=== PATIENT | female | born 1985 | race Caucasian/White ===

== ENCOUNTER → 2016-05-03 | Outpatient (CLI) | payer OTHER ==
[~2016-05-03] MED LIST: ACET50TA PO; AMOXICILLIN 875 MG PO; IBUP200T2 PO; SIME40TA PO; [UNRECOGNIZED DRUG - OTHER] PO
[2016-05-03 14:00] LABS: HBsAg Prenatal NEGATIVE (NEGATIVE)
[2016-05-03 14:12] LABS: BASO % 0.1 % (0.0-1.0); EOS # 0.1 K/mm3 (0.0-0.50); EOS % 1.3 % (0.0-3.0); LARGE UNSTAINED CELL # 0.1 K/mm3 (0.0-0.4); LARGE UNSTAINED CELL % 0.9 % (0.0-4.0); LYMPH # 1.5 K/mm3 (1.5-4.5); LYMPH % 13.9 % (24.0-44.0); MEAN CORPUSCULAR HEMOGLOBIN 32.3 pg (27.0-33.0); MEAN CORPUSCULAR VOLUME 95.1 fl (80.0-96.0); MONO # 0.5 K/mm3 (0.0-0.8); MONO % 5.4 % (0.0-5.0); NEUTROPHILS # 7.9 K/mm3 (1.8-7.7); NEUTROPHILS % 78.4 % (36.0-66.0); PLATELET COUNT, AUTOMATED 223 k/mm3 (150-450); RED CELL DISTRIBUTION WIDTH 13.5 % (11.5-14.5)
[2016-05-04 14:13] LABS: HIV SCRN NEGATIVE (NEGATIVE); HIV SCRN1 NEGATIVE (NEGATIVE)
[2016-05-04 14:14] LABS: CONTROL LINE INT CTR LINE PRESENT
== END ==
LOC: M SMT 10:54
PROVIDERS: ATTEND Obstetrics & Gynecology
DX: Z34.81 Encounter for supervision of other normal pregnancy, first trimester (principal)

== ENCOUNTER → 2016-05-04 | Outpatient (CLI) | payer OTHER ==
--- NOTE | 2016-05-05 06:58 | REP ---
Clinical: Dating and viability. Technique: Transabdominal first trimester obstetrical ultrasound. Findings: Ultrasound examination demonstrates a single live early intrauterine . Gestational age by current biometrical measurements at 14 weeks 5 days with estimated date of delivery 10/28/2016. heart rate equals 157 beats per minute. No gross abnormalities are identified. Placenta is noted anteriorly and grade zero. Impression: Single live early intrauterine at 14 weeks 5 days gestational age. Complete anatomical assessment should be performed at 19-20 weeks. Signed by Dirk Webster MD 05/05/2016 06:49 A
== END ==
LOC: M RAD 11:59
PROVIDERS: ATTEND Advanced Practice Midwife
DX: Z34.82 Encounter for supervision of other normal pregnancy, second trimester (principal)

== ENCOUNTER → 2016-06-02 | Outpatient (CLI) | payer OTHER ==
--- NOTE | 2016-06-02 16:32 | REP ---
OB ULTRASOUND: Real-time sonographic evaluation of the gravid uterus is performed. There is a single living intrauterine gestation. Estimated gestational age is 18 weeks 6 days with EDC 11/07/2016. Today's measurements indicate appropriate growth. BPD 41 mm = 18 weeks 4 days, 41st percentile. HC 151 mm = 18 weeks 1 days, 30th percentile. AC 135 mm = 18 weeks 6 day, 52nd percentile. Femur length 28 mm = 18 weeks 4 days, 44th percentile. HC/AC ratio 1.12 within normal range. Estimated weight 254 grams, 41st percentile. Cervix is closed and measures 4.9 cm in length. heart rate 150 beats per minute. SEEN/GROSSLY UNREMARKABLE Lateral ventricles Yes Posterior fossa Yes Upper lip Yes Four-chamber heart No LVOT No RVOT No Stomach Yes Cord insertion Yes Three vessel cord No Kidneys Yes Bladder No Spine Yes position: Breech. Placenta: Anterior and grade 0 with no previa or abruption. Amniotic fluid: Within normal limits. Signed by Kamlesh Bueno MD 06/03/2016 12:56 P
== END ==
LOC: M SMT 14:59
PROVIDERS: ATTEND Advanced Practice Midwife
DX: O09.42 Supervision of pregnancy with grand multiparity, second trimester (principal); R53.83 Other fatigue

== ENCOUNTER → 2016-07-05 | Outpatient (CLI) | payer OTHER ==
--- NOTE | 2016-07-05 15:48 | REP ---
Clinical: Anatomical evaluation. Comparison: 06/02/2016 . Findings: Examination demonstrates a single live intrauterine in cephalic presentation. motion is identified by technologist. Placenta is noted anteriorly and grade zero without evidence for placenta previa or abruption. Amniotic fluid volume is normal. Cervix measures 3.7 cm in length and appears closed. No evidence for nuchal cord. Gestational age by LMP 23 weeks 4 days with ESME 10/28/2016 . Gestational age by current measurements 22 weeks 5 days with ESME 11/03/2016 . FHR equals 157 beats per minute. Estimated weight 594 grams ( 40th percentile). Anatomical assessment demonstrates normal structures including cranium, choroid plexus, cavum, cerebellum/posterior fossa, lungs, four-chamber heart/ventricular outflow tracts, diaphragm, stomach, cord insertion/three-vessel cord, kidneys/bladder, spine, and extremities. Impression: 1. Single live intrauterine in cephalic presentation demonstrating appropriate interval growth. 2. In conjunction with prior examination anatomical assessment is complete and normal. Signed by Dirk Webster MD 07/05/2016 03:39 P
== END ==
LOC: M SMT 14:08
PROVIDERS: ATTEND Specialist
DX: Z34.82 Encounter for supervision of other normal pregnancy, second trimester (principal)

== ENCOUNTER → 2016-09-21 | Outpatient (CLI) | payer OTHER ==
[~2016-09-21] MED LIST changes: +IBUP-1114 PO; +PRE-TAB3 PO
[2016-09-21 09:35] LABS: MEAN CORPUSCULAR HEMOGLOBIN 32.5 pg (27.0-33.0); MEAN CORPUSCULAR HGB CONC 34.2 g/dl (32.0-36.5); MEAN CORPUSCULAR VOLUME 95.1 fl (80.0-96.0); RED CELL DISTRIBUTION WIDTH 13.5 % (11.5-14.5); WHITE BLOOD COUNT 8.7 K/mm3 (4.0-10.0)
[2016-09-21 09:44] LABS: ALT/SGPT 13 U/L (12-78); AST/SGOT 11 U/L (15-37); BILIRUBIN,TOTAL 0.3 MG/DL (0.2-1.0); CREATININE FOR GFR 0.58 MG/DL (0.55-1.02); GLOMERULAR FILTRATION RATE > 60.0 (>60); URIC ACID 3.8 MG/DL (2.6-6.0)
== END ==
LOC: M LAB 07:58
PROVIDERS: ATTEND Advanced Practice Midwife
DX: O13.3 Gestational [pregnancy-induced] hypertension without significant proteinuria, third trimester (principal); Z3A.00 Weeks of gestation of pregnancy not specified

== ENCOUNTER → 2016-09-21 | Outpatient (CLI) | payer OTHER ==
[2016-09-21 09:34] LABS: MEAN CORPUSCULAR HEMOGLOBIN 31.9 pg (27.0-33.0); MEAN CORPUSCULAR HGB CONC 33.6 g/dl (32.0-36.5); MEAN CORPUSCULAR VOLUME 94.9 fl (80.0-96.0); RED CELL DISTRIBUTION WIDTH 13.5 % (11.5-14.5); WHITE BLOOD COUNT 8.8 K/mm3 (4.0-10.0)
== END ==
LOC: M LAB 08:01
PROVIDERS: ATTEND Obstetrics & Gynecology
DX: Z34.82 Encounter for supervision of other normal pregnancy, second trimester (principal)

== ENCOUNTER → 2016-09-27 | Outpatient (REF) | payer OTHER ==
[2016-09-27 16:12] LABS: CREATININE, SERUM 0.5 MG/DL (0.6-1.0)
[2016-09-27 16:19] LABS: CREATININE CLEARANCE, URINE 180.2 ML/MIN (75-115)
== END ==
LOC: M LAB REF 14:53
PROVIDERS: ATTEND Obstetrics & Gynecology
DX: O13.3 Gestational [pregnancy-induced] hypertension without significant proteinuria, third trimester (principal)

== ENCOUNTER → 2016-10-15 | Outpatient (REF) | payer OTHER | LOC: M LAB REF 11:07 | PROVIDERS: ATTEND Advanced Practice Midwife | DX: O09.43 Supervision of pregnancy with grand multiparity, third trimester (principal); Z3A.00 Weeks of gestation of pregnancy not specified ==

== ENCOUNTER 2016-10-28 06:57 | Inpatient (IN) | payer OTHER ==
[~2016-10-28] VITALS: Ht 162.6 cm; Wt 85.0 kg
[2016-10-28] VITALS (30 sets, daily range): BP systolic 108–147; BP diastolic 57–96
[~2016-10-28 06:57] MED LIST changes: -IBUP-1114 PO; -PRE-TAB3 PO
[2016-10-28] MEDS ORDERED: PRE-TAB3 PO (07:00)
[2016-10-28] MEDS ORDERED: PENICILLIN G POTASSIUM IV 5 MU in D5W MINI-BAG PLUS 100 ML IV STA (08:07)
[2016-10-28] MEDS ORDERED: LACTATED RINGER'S 1000 ML IV STA (08:07)
[2016-10-28] MEDS: LR 1,000 ML IV SCH ×2 (08:58→20:00)
[2016-10-28 09:30] LABS: MEAN CORPUSCULAR HEMOGLOBIN 31.8 pg (27.0-33.0); MEAN CORPUSCULAR HGB CONC 33.8 g/dl (32.0-36.5); RED CELL DISTRIBUTION WIDTH 14.1 % (11.5-14.5); WHITE BLOOD COUNT 9.8 K/mm3 (4.0-10.0)
[2016-10-28] MEDS ORDERED: miSOPROStol 50 MCG 1/2 TAB (S0191) SL PRN (13:15)
[2016-10-28] MEDS: PENICILLIN G POTASSIUM IV 2.5 MU in D5W 100 ML IV SCH ×3 (13:16→22:00)
[2016-10-28] MEDS ORDERED: OXYTOCIN DRIP 30 UNITS in APPROPRIATE DILUENT 1 EA IV SCH ×5 (18:15→22:49)
[2016-10-28] MEDS ORDERED: FENTANYL 2MCG/ML ROPIVACAINE 0.2% IN 0.9% NACL 200ML IVBAG As Ordered ONE (20:35)
[2016-10-28] MEDS ORDERED: NALOXONE INJ 0.4 MG/1 ML VIAL (J2310) IV PRN (22:15)
[2016-10-28] MEDS ORDERED: FENTANYL/ROPIVACAINE/NACL BAG 200 ML EPIDURAL SCH (22:15)
[2016-10-28] MEDS ORDERED: diphenhydrAMINE INJ 50MG/ML VIAL (J1200) IV PRN (22:15)
[2016-10-28] MEDS ORDERED: LACTATED RINGER'S 1000 ML IV PRN (22:15)
[2016-10-28] MEDS ORDERED: REFRIGERATOR IV KEYS XX PRN (22:15)
[2016-10-28] MEDS ORDERED: ePHEDrine SULFATE 25 MG/5 ML(5MG/ML) SYRINGE IV PRN (22:15)
[2016-10-28] MEDS ORDERED: EPIDURAL/PCA KEYS XX PRN (22:15)
[2016-10-28] MEDS ORDERED: ONDANSETRON 4MG/2ML VIAL (J2405) IV PRN ×2 (22:15→23:00)
[2016-10-28] MEDS ORDERED: EPIDURAL COMMENT XX SCH (22:15)
[2016-10-28] MEDS ORDERED: LR 1,000 ML IV SCH (22:49)
[2016-10-28] MEDS ORDERED: DIBUCAINE 1% OINTMENT 30GM TOP PRN (23:00)
[2016-10-28] MEDS ORDERED: MEASLES,MUMPS,RUBELLA VACCINE INJ (MMR-II) (90707) SC SCH (23:00)
[2016-10-28] MEDS ORDERED: ACETAMINOPHEN 500 MG TAB PO PRN (23:00)
[2016-10-28] MEDS ORDERED: IBUPROFEN 800 MG TAB PO PRN (23:00)
[2016-10-28] MEDS ORDERED: RHOGAM 300 MCG (1500 IU) INJ (J2790) IM SCH (23:00)
[2016-10-28] MEDS ORDERED: PROMETHAZINE 25 MG TAB PO PRN (23:00)
[2016-10-28] MEDS ORDERED: DOCUSATE SODIUM 100 MG CAP PO PRN (23:00)
[2016-10-29 00:35] VITALS: BP 107/60
[2016-10-29 05:56] VITALS: BP 115/67
[2016-10-29] MEDS: NYSTATIN 100,000 UNITS/GM TOPICAL PWD 15 GM TOP SCH (09:00)
[2016-10-29] MEDS: PRENATAL VITAMINS CHEWABLE TABLET PO SCH (09:08)
[2016-10-29 18:00] VITALS: BP 129/70
[2016-10-30 05:35] VITALS: BP 121/77
[2016-10-30] MEDS: PRENATAL VITAMINS CHEWABLE TABLET PO SCH (08:01)
[2016-10-30] MEDS: NYSTATIN 100,000 UNITS/GM TOPICAL PWD 15 GM TOP SCH (08:02)
[2016-10-30] MEDS ORDERED: ACET50TA PO (08:25)
[2016-10-30] MEDS ORDERED: IBUP-1114 PO (08:27)
== END 2016-10-30 09:55 | disposition home or self-care (01) | DRG 560 ==
LOC: M LDI 06:57 → M OBS 10-29 00:30
PROVIDERS: ADMIT Advanced Practice Midwife; ATTEND Advanced Practice Midwife
PROC: 10E0XZZ Delivery of Products of Conception, External Approach (ICD-10-PCS; principal; 2016-10-28)
PROC: 0UBMXZZ Excision of Vulva, External Approach (ICD-10-PCS; 2016-10-28)
PROC: 3E0P7GC Introduction of Other Therapeutic Substance into Female Reproductive, Via Natural or Artificial Opening (ICD-10-PCS; 2016-10-28)
DX: O48.0 Post-term pregnancy (principal); N90.7 Vulvar cyst; Z37.0 Single live birth; Z3A.40 40 weeks gestation of pregnancy; O99.820 Streptococcus B carrier state complicating pregnancy; O69.82X0 Labor and delivery complicated by other cord entanglement, without compression, not applicable or unspecified; O26.893 Other specified pregnancy related conditions, third trimester

== ENCOUNTER → 2017-12-16 | Outpatient (REF) | payer OTHER ==
[2017-12-16 11:17] LABS: INFLUENZA A AMPLIFICATION NEGATIVE (NEGATIVE); INFLUENZA B AMPLIFICATION NEGATIVE (NEGATIVE)
== END ==
LOC: M LAB REF 10:25
DX: Z11.59 Encounter for screening for other viral diseases (principal)
CPT/HCPCS: 87502

== ENCOUNTER → 2020-03-03 | Outpatient (REF) | payer OTHER ==
[~2020-03-03] MED LIST changes: -ACET50TA PO; +IBUP-1114 PO; +MAPA500T17 PO; +MAPA500T2 PO; +PRE-TAB3 PO
[2020-03-03 17:34] LABS: APPEARANCE, URINE HAZY (CLEAR); BACTERIA, URINE AUTO NEGATIVE (NEGATIVE); BILIRUBIN, URINE AUTO NEGATIVE (NEGATIVE); BLOOD, URINE BLOOD 2+ (NEGATIVE); COLOR, URINE STRAW (YELLOW); GLUCOSE, URINE (UA) AUTO NEGATIVE (NEGATIVE); KETONE, URINE AUTO TRACE mg/dL (NEGATIVE); LEUKOCYTE ESTERASE, URINE AUTO 3+ (NEGATIVE); NITRITE, URINE AUTO NEGATIVE (NEGATIVE); PROTEIN, URINE AUTO NEGATIVE (NEGATIVE); RBC, URINE AUTO 0 /HPF (0-3); SPECIFIC GRAVITY URINE AUTO 1.003 (1.002-1.035); SQUAMOUS EPITHELIAL CELL UR AU 1 /HPF (0-6); UROBILINOGEN, URINE AUTO 0.2 mg/dL (0.0-2.0); WBC, URINE AUTO 32 /HPF (0-3)
== END ==
LOC: M SMT 16:53
PROVIDERS: ATTEND Nurse Practitioner Family
DX: R31.9 Hematuria, unspecified (principal)

== ENCOUNTER → 2020-03-24 | Outpatient (CLI) | payer OTHER ==
[~2020-03-24] MED LIST changes: +ACET-897 PO; +GABA-282 PO; +OXYC5CAP56 PO
--- NOTE | 2020-03-25 08:29 | REP ---
INDICATION: UTI'S COMPARISON: None TECHNIQUE: Real time beltran scale B-mode and Doppler ultrasound examination using curved array transducer. FINDINGS: Bilateral kidneys are normal in contour, size, echogenicity, and reniform shape. Right kidney measures 10.6 x 7.0 x 4.3 cm (RI 0.59) without hydronephrosis, nephrolithiasis, cystic or renal mass lesion. Left kidney measures 11.1 x 6.2 x 6.1 cm (RI 0.60) and demonstrates mild/moderate hydronephrosis without nephrolithiasis, cystic or renal mass lesion identified. IMPRESSION: Mild/moderate left hydronephrosis. <Electronically signed by Dirk Webster > 03/25/20 [id number]
--- NOTE | 2020-03-25 08:31 | REP ---
INDICATION: UTI'S COMPARISON: None TECHNIQUE: Real time B-mode ultrasound examination using curved array transducer. FINDINGS: Bladder is normal in appearance without wall thickening or mass lesion. Bilateral ureteral jets were not identified during examination. Patient gives a history of cervical carcinoma and there is a cervical mass measuring 5.1 x 4.8 x 3.5 cm. Prevoid bladder measures 14.8 x 9.5 x 6.4 cm (588 cc). Postvoid bladder measures 5.7 x 6.4 x 4.1 cm (98 cc). Postvoid residual: 17% IMPRESSION: 1. Elevated postvoid residual volume warrants further investigation. 2. Cervical mass identified. <Electronically signed by Dirk Webster > 03/25/20 [id number]
== END ==
LOC: M RAD 15:09
PROVIDERS: ATTEND Nurse Practitioner Family
DX: N39.0 Urinary tract infection, site not specified (principal); N88.8 Other specified noninflammatory disorders of cervix uteri

== ENCOUNTER 2020-03-31 07:50 | Day surgery (SDC) | payer OTHER ==
[~2020-03-31] VITALS: Ht 162.6 cm; Wt 83.0 kg
[~2020-03-31 07:50] MED LIST changes: +CONRAY-60 60% 50ML VIAL (Q9961) As Ordered ONE; +LR 1,000 ML IV ONE
[2020-03-31] MEDS ORDERED: LIDOCAINE 2% 100MG/5ML SDV (FOR ANES.) As Ordered ONE (08:13)
[2020-03-31] MEDS ORDERED: fentaNYL 100 MCG/2 ML INJECTION (J3010) As Ordered ONE (08:13)
[2020-03-31] MEDS ORDERED: MIDAZOLAM INJ 2MG/2ML VIAL (J2250 PER 1MG) As Ordered ONE (08:13)
[2020-03-31] MEDS ORDERED: propofoL 200 MG/20 ML VIAL As Ordered ONE ×2 (08:13→09:13)
[2020-03-31] MEDS ORDERED: ceFAZolin 2 GM/D5W 50 ML IV BAG (J0690 PER 500MG) As Ordered ONE (08:26)
[2020-03-31] MEDS ORDERED: ceFAZolin SOD 2 GM in IV 1 EA IV ONE (08:45)
[2020-03-31] MEDS ORDERED: LIDOCAINE 2% 5ML JELLY UROJET As Ordered ONE (08:59)
--- NOTE | 2020-03-31 09:34 | ROOPDOC ---
[facility] Report Of Operation Report of Operation DATE OF PROCEDURE: 03/31/20 PREPROCEDURE DIAGNOSES: Left ureteral obstruction and also cervical cancer encasing the right ureter POSTPROCEDURE DIAGNOSES: Same PROCEDURE: Cystoscopy, bilateral retrograde pyelograms, and bilateral double-J ureteral stent placement SURGEON: Diya Guerrero MD DIE [employer]KER APPRENTICE: None ANESTHESIA: MAC ESTIMATED BLOOD LOSS: Approximately 0 mL. COMPLICATIONS: None REMARKS: Significant abnormalities of the left distal ureter with difficulty placing a wire and stent PROCEDURE NOTE: Patient is a 34-year-old female with cervical cancer, stage III or higher, found on a PET scan to have bilateral encasement of the ureters by cervical cancer with bilateral Din[place]iddie. Repeat ultrasound only showed left [place] but because of the encasement oncology felt that it was prudent to place bilateral ureteral stents. DESCRIPTION OF PROCEDURE: Patient was brought into the operating room and sequential compression devices were in place and preoperative antibiotics had been given. Anesthesia was induced. She was then placed in the lithotomy position and careful attention was paid that her pressure points were well-padded and protected. She was prepped and draped in the usual fashion. A 21 Sammarinese cystoscope was inserted. Bilateral retrogrades were done in the right side did show some narrowing of the distal ureter but no significant Hydronephrosis or other abnormalities. Left retrograde pyelogram showed significant narrowing of the distal ureter and abnormalities consistent with encasement by cervical cancer. There was also left hydronephrosis. Next I attempted to place a wire up the left ureterer but could not pass over the distal obstruction. I then placed an open-ended catheter and injected a combination of jelly and water. Under continuous fluoroscopy I was then able to navigate the wire up to the kidney. I was then able to place an 8 Sammarinese double- J ureteral stent. There was nice curl in the kidney and bladder. I then placed a wire into the right ureter under fluoroscopy and this went into the kidney easily and I again placed an 8 Sammarinese double J ureteral stent with a good curl in the kidney and in the bladder. The patient tolerated the procedure well and was returned to the recovery room in stable condition. She should have stent exchanges in 4-6 months. For whatever reason she is unable to tolerate the stent site think that the right side could be taken out and just followed clinically if necessary. DIYA GUERRERO MD Mar 31, 2020 09:34
[2020-03-31] MEDS ORDERED: fentaNYL 100 MCG/2 ML INJECTION (J3010) IV PRN (10:15)
[2020-03-31] MEDS ORDERED: LR 1,000 ML IV SCH (10:15)
[2020-03-31] MEDS ORDERED: oxyCODONE 5MG TAB PO PRN (10:15)
[2020-03-31] MEDS ORDERED: ONDANSETRON 4MG/2ML VIAL IV PRN (10:15)
[2020-03-31] MEDS ORDERED: HYDROMORPHONE HCL 0.5 MG/ 0.5 ML SYRINGE (J1170 PER 1) IV PRN (10:15)
[2020-03-31 11:10] VITALS: BP 131/75
--- NOTE | 2020-04-01 07:09 | REP ---
INDICATION: BILATERAL URETERAL STENT PLACEMENT. COMPARISON: None. TECHNIQUE: Three views. 25 seconds of fluoroscopy time is reported. FINDINGS: A sequence of 3 last image hold fluoroscopically obtained spot radiographs of the abdomen document bilateral ureteral cannulation, contrast injection, hydronephrosis, and bilateral ureteral stent placement. IMPRESSION: Procedural imaging. <Electronically signed by Tao Way > 03/31/20 [id number]
== END 2020-03-31 11:15 | disposition home or self-care (01) ==
LOC: M SDC 07:50
PROVIDERS: ATTEND Specialist
DX: N13.9 Obstructive and reflux uropathy, unspecified (principal); C53.9 Malignant neoplasm of cervix uteri, unspecified; Z79.899 Other long term (current) drug therapy
CPT/HCPCS: 52332; 74420; 81025; C1769; C2617; J0690; J2250; J3010; Q9961

== ENCOUNTER → 2020-08-19 | Outpatient (REF) | payer OTHER ==
[~2020-08-19] MED LIST changes: -CONRAY-60 60% 50ML VIAL (Q9961) As Ordered ONE; -LR 1,000 ML IV ONE
== END ==
LOC: M SMT 17:04
PROVIDERS: ATTEND Urology
DX: Z96.0 Presence of urogenital implants (principal)

== ENCOUNTER → 2021-02-06 | Outpatient (CLI) | payer OTHER | LOC: M RAD 12:44 | PROVIDERS: ATTEND Urology | DX: C53.9 Malignant neoplasm of cervix uteri, unspecified (principal); Z96.0 Presence of urogenital implants ==

== ENCOUNTER → 2021-02-12 | Outpatient (REF) | payer OTHER ==
[2021-02-12 17:17] LABS: APPEARANCE, URINE CLEAR (CLEAR); BACTERIA, URINE AUTO NEGATIVE (NEGATIVE); BILIRUBIN, URINE AUTO NEGATIVE (NEGATIVE); BLOOD, URINE BLOOD 1+ (NEGATIVE); COLOR, URINE STRAW (YELLOW); GLUCOSE, URINE (UA) AUTO NEGATIVE (NEGATIVE); KETONE, URINE AUTO NEGATIVE (NEGATIVE); LEUKOCYTE ESTERASE, URINE AUTO 1+ (NEGATIVE); NITRITE, URINE AUTO NEGATIVE (NEGATIVE); PROTEIN, URINE AUTO NEGATIVE (NEGATIVE); RBC, URINE AUTO 1 /HPF (0-3); SPECIFIC GRAVITY URINE AUTO 1.005 (1.002-1.035); SQUAMOUS EPITHELIAL CELL UR AU 6 /HPF (0-6); UROBILINOGEN, URINE AUTO 0.2 mg/dL (0.0-2.0); WBC, URINE AUTO 3 /HPF (0-3)
== END ==
LOC: M SMT 16:41
PROVIDERS: ATTEND Physician Assistant
DX: R10.32 Left lower quadrant pain (principal)